=== PATIENT | male | born 1965 | race African-American/Black ===

== ENCOUNTER 2023-03-03 17:09 | Emergency (ER) | payer MEDICAID ==
[~2023-03-03] VITALS: Ht 177.8 cm; Wt 82.0 kg
[2023-03-03] MEDS ORDERED: OXYM-15 (17:41)
[2023-03-03] MEDS ORDERED: OXYMETAZOLINE HCL 0.05 % NASAL SPRAY 15ML EACHNOSTRI ONE (17:45)
[2023-03-03 18:36] VITALS: BP 151/93; PULSE 82; RESP 18; TEMP 98.6; O2SAT 96
== END 2023-03-03 18:38 | disposition home or self-care (01) ==
LOC: ER 17:09
DX: R04.0 Epistaxis (principal); S01.23XA Puncture wound without foreign body of nose, initial encounter; I10 Essential (primary) hypertension; W34.09XA Accidental discharge from other specified firearms, initial encounter; Y93.89 Activity, other specified; Y92.89 Other specified places as the place of occurrence of the external cause; Y99.8 Other external cause status

== ENCOUNTER 2024-09-08 15:15 | Emergency (ER) | payer MEDICAID ==
[~2024-09-08] VITALS: Ht 177.8 cm; Wt 89.0 kg
[~2024-09-08 15:15] MED LIST: AMLO1TAB22 PO; CARI-277 PO; HYDR-2792 PO; HYDR-4798 PO; LISI-275 PO; OXYM-15
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
[2024-09-08 16:36] LABS: Basophils # (auto) 0 10 ^3/uL (0-0.2); Basophils % (auto) 0.5 % (0.0-2.0); Eosinophils # (auto) 0 10 ^3/uL (0-0.8); Eosinophils % (auto) 0.1 % (0.0-7.0); Hematocrit 44.5 % (41.0-53.0); Hemoglobin 14.9 g/dL (13.5-17.5); Lymphocytes # (auto) 0.9 10 ^3/uL (0.4-5.4); Lymphocytes % (auto) 32.7 % (10.0-50.0); Mean Corpuscular Hemoglobin 28.1 pg (28.0-32.0); Mean Corpuscular Hgb Conc. 33.5 g/dL (32.0-36.0); Monocytes # (auto) 0.4 10 ^3/uL (0-1.3); Neutrophils # (auto) 1.4 10 ^3/uL (1.6-8.6); Neutrophils % (auto) 51.7 % (37.0-80.0); Nucleated Red Blood Cells % 0.2 %; Platelet Count (auto) 269 10^3/uL (140-450); Red Cell Distribution Width 15.4 % (11.8-14.3); White Blood Cell 2.7 10^3/uL (4.4-10.8)
[2024-09-08 16:51] LABS: Alanine Aminotransferase 19 U/L (7-40); Albumin 4.5 g/dL (3.2-4.8); Alkaline Phosphatase 87 U/L (46-116); Anion Gap 8 (5-15); Aspartate Aminotransferase 25 U/L (13-40); BUN/Creatinine Ratio 15.9 (10.0-20.0); Blood Urea Nitrogen 13 mg/dL (9-23); Calcium 9.7 mg/dL (8.7-10.4); Carbon Dioxide 24 mmol/L (20-31); Glucose 99 mg/dL (74-106); Potassium 3.6 mmol/L (3.5-5.1); Sodium 140 mmol/L (136-145); Total Protein 7.4 g/dL (5.7-8.2)
[2024-09-08 16:52] LABS: Bilirubin, Total 0.3 mg/dL (0.2-1.0)
[2024-09-08 16:55] LABS: Chloride 108 mmol/L (98-107)
--- NOTE | 2024-09-08 17:35 | DVH ---
EXAM: CT HEAD WITHOUT CONTRAST HISTORY: gen weak hi BP COMPARISON: None TECHNIQUE: Axial images were obtained and reformatted in coronal and sagittal planes. All CT scans at this medical facility are performed using dose modulation techniques as appropriate t o a performed exam including the following: Automated exposure control was utilized; adjustment of th e MA and/or KV according to patient size; and use of iterative reconstruction technique. CT Dose: CTDI volume is 63.4 mGy. Dose-length product is 1122.4 mGy*cm FINDINGS: Supratentorial Region: No evidence for large acute territorial ischemia. No intracranial hemorrhage is noted. Moderate-sized right frontoparietal encephalomalacia with associated dystrophic calcificat ion and numerous punctate metallic densities in the encephalomalacia, overlying calvarium and scalp. Ex vacuo dilatation of the right lateral ventricle noted. Posterior Fossa: No acute abnormality. Brainstem: Unremarkable. Sellar/Suprasellar Region: Unremarkable. Ventricles, Cisterns, Sulci: No hydrocephalus. Orbits: Unremarkable. Paranasal Sinuses: Left maxillary sinus mucosal thickening noted. Mastoid Air Cells: Unremarkable. Vasculature: Unremarkable. Bones/Soft Tissues: No acute abnormality. Right parietal craniotomy. Other: None. IMPRESSION: 1. No acute intracranial process.
--- NOTE | 2024-09-08 17:45 | DVH ---
EXAM: XY CHEST PORTABLE TECHNIQUE: Single frontal chest radiograph CLINICAL HISTORY: gen weak COMPARISON: None Findings/Impression: Frontal chest radiograph demonstrates no acute osseous or superficial soft tissue abnormalities. The trachea is midline. The cardiac silhouette and mediastinum are within normal limits. No pneumothorax, pleural effusions, or consolidations.
[2024-09-08] MEDS: hydrALAZINE HCL 20 MG/ML VL IV ONE (19:54)
[2024-09-08 19:55] VITALS: BP 180/102; PULSE 76; RESP 18; TEMP 98.2; O2SAT 96
[2024-09-08] MEDS ORDERED: LABETALOL HCL 20 MG/4 ML VL IV ONE (22:00)
[2024-09-08] MEDS ORDERED: HYDROcodone-ACET 5/325MG TAB PO PRN (22:15)
[2024-09-08] MEDS ORDERED: DOCUSATE SOD 100 MG CAP PO PRN (22:15)
[2024-09-08] MEDS ORDERED: hydrALAZINE HCL 20 MG/ML VL IV PRN (22:15)
[2024-09-08] MEDS ORDERED: ONDANSETRON HCL 4 MG/2 ML VIAL IV PRN (22:15)
[2024-09-08] MEDS ORDERED: amLODIPine BESYLATE 5 MG TAB PO ONE (22:15)
[2024-09-08] MEDS ORDERED: ACETAMINOPHEN 325 MG TAB PO PRN (22:15)
[2024-09-09] MEDS ORDERED: SODIUM CHLOR 0.9% PF (SALINE LOCK) 10ML VIAL/SYR IV SCH (06:00)
[2024-09-09] MEDS ORDERED: amLODIPine BESYLATE 5 MG TAB PO SCH (10:00)
[2024-09-09] MEDS ORDERED: METOPROLOL TARTRATE 25 MG TAB PO SCH (10:00)
--- NOTE | 2024-09-09 20:13 | ECG ---
[facility] Test Date: 2024-09-08 Test Time: 15:13:59 Pat Name: LYNDA CANELA Department: ER Room: Gender: M Stock Layer: MARY KAY : 1965 Requested By: SUSAN ACOSTA Order Number: [id number] Reading MD: Vito Blanco Measurements Intervals [place] Stein Rate: 67 P: 53 IN: 158 QRS: 74 QRSD: 121 T: 31 QT: 414 QTc: 437 Interpretive Statements Sinus rhythm IVCD, consider atypical RBBB Probable left ventricular hypertrophy Electronically Signed On 09-09-2024 20:42:31 PDT by Vito Blanco Please click the below link to view image of tracing.
== END 2024-09-08 22:15 | disposition left against medical advice (07) ==
LOC: EDUNIT# 15:15 → EDBD 15:15 → ER 15:20
DX: I16.0 Hypertensive urgency (principal); I10 Essential (primary) hypertension; Z98.890 Other specified postprocedural states
CPT/HCPCS: 36415; 70450; 71045; 80053; 83880; 84484; 85025; 93005; 96374; 99285; J0360

== ENCOUNTER 2024-09-10 11:19 | Emergency (ER) | payer MEDICAID ==
[~2024-09-10] VITALS: Ht 177.8 cm; Wt 86.6 kg
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
[2024-09-10] MEDS: SODIUM CHLORIDE 0.9% 500 ML IV ONE (11:45)
--- NOTE | 2024-09-10 11:59 | ECG ---
[facility] Test Date: 2024-09-10 Test Time: 11:35:36 Pat Name: LYNDA CANELA Department: ER Room: Gender: M Loan Underwriter: HAYDE : 1965 Requested By: EMERGENCY EMERGENCY Order Number: [id number] Reading MD: Vito Blanco Measurements Intervals [place] Rate: 82 P: 47 VA: 148 QRS: 52 QRSD: 111 T: 76 QT: 378 QTc: 442 Interpretive Statements Sinus rhythm Probable left ventricular hypertrophy Electronically Signed On 09-12-2024 22:33:21 PDT by Vito Blanco Please click the below link to view image of tracing.
[2024-09-10 12:08] LABS: Hematocrit 43.2 % (41.0-53.0); Hemoglobin 14.6 g/dL (13.5-17.5); Mean Corpuscular Hemoglobin 28.2 pg (28.0-32.0); Mean Corpuscular Hgb Conc. 33.7 g/dL (32.0-36.0); Mean Corpuscular Volume 83.5 fL (80.0-100.0); Platelet Count (auto) 271 10^3/uL (140-450); Red Blood Cells 5.18 10^6/uL (4.5-5.90); Red Cell Distribution Width 15.7 % (11.8-14.3); White Blood Cell 3.2 10^3/uL (4.4-10.8)
[2024-09-10 12:11] LABS: Sodium 141 mmol/L (136-145)
[2024-09-10 12:12] LABS: Anion Gap 8 (5-15); Carbon Dioxide 24 mmol/L (20-31)
[2024-09-10 12:13] LABS: Calcium 9.7 mg/dL (8.7-10.4)
[2024-09-10 12:17] LABS: BUN/Creatinine Ratio 14.4 (10.0-20.0); Blood Urea Nitrogen 15 mg/dL (9-23)
[2024-09-10 12:20] LABS: Chloride 109 mmol/L (98-107); Glucose 114 mg/dL (74-106); Potassium 3.4 mmol/L (3.5-5.1)
[2024-09-10 12:22] LABS: Band Neutrophils % (manual) 0; Basophils % (manual) 0 (0.0-2.0); Blast Cells 0; Eosinophils % (manual) 0 (0-7); Metamyelocytes % 0; Myelocytes % 0; Promyelocytes % 0
[2024-09-10 12:48] LABS: Lymphocytes % (manual) 57 (10.0-50.0); Monocytes % (manual) 11 (0-12); Platelet Estimate Adequate; Reactive Lymphocytes 5
[2024-09-10 14:28] LABS: Urine Bacteria None Seen /hpf (None Seen)
[2024-09-10 14:39] LABS: Urine Blood TRACE /uL (Negative); Urine Clarity Turbid (Clear); Urine Color Yellow (Yellow); Urine Mucus FEW (None Seen); Urine Protein, UAD 1+ (Negative); Urine Specific Gravity 1.027 (1.001-1.035); Urine Squamous Epithelial Cell FEW /hpf (<5); Urine Urobilinogen Normal (Negative); Urine WBC 4 /HPF (0-3)
[2024-09-10 16:50] VITALS: BP 155/92; PULSE 59; RESP 16; TEMP 98.7; O2SAT 93
== END 2024-09-10 17:00 | disposition home or self-care (01) ==
LOC: ER 11:19
DX: R53.1 Weakness (principal); I16.0 Hypertensive urgency; I10 Essential (primary) hypertension; Z79.899 Other long term (current) drug therapy
CPT/HCPCS: 36415; 80048; 81001; 85007; 85027; 93005; 96360; 96361; 99284; J7040